=== PATIENT | female | born 1950 | race Caucasian/White ===

== ENCOUNTER 2016-06-22 15:10 | Outpatient (CLI) | payer SELFPAY ==
[~2016-06-22] VITALS: Ht 160 cm; Wt 86.2 kg
[2016-06-23] MEDS ORDERED: CETI10CA PO (12:54)
[2016-06-23] MEDS ORDERED: ESTR1TAB14 PO (12:54)
[2016-06-23] MEDS ORDERED: CALC-696 PO (12:54)
[2016-06-23] MEDS ORDERED: [UNRECOGNIZED DRUG - CODE] TP (12:54)
[2016-06-23] MEDS ORDERED: BIOT25007 PO (12:54)
[2016-06-23] MEDS ORDERED: OMEP20CA12 PO (12:54)
[2016-06-23] MEDS ORDERED: LEVO25TA5 PO (12:54)
[2016-06-23] MEDS ORDERED: MEDR2.5T6 PO (12:54)
[2016-06-23] MEDS ORDERED: BUTA1CAP39 PO (12:54)
[2016-06-23] MEDS ORDERED: FLUO15CR2 TP (12:54)
[2016-06-23] MEDS ORDERED: TRAZ-28 PO (12:54)
[2016-06-23] MEDS ORDERED: ESCI20TA PO (12:54)
[2016-06-23] MEDS ORDERED: MULT-974 PO (12:54)
[2016-06-23] MEDS ORDERED: GLUC1CAP7 PO (12:54)
[2016-06-23] MEDS ORDERED: PANT40TA2 PO (13:30)
[2016-08-11] MEDS ORDERED: METO5TAB75 PO (12:16)
== END 2016-06-22 15:24 ==
LOC: PREOP 15:10
PROVIDERS: ATTEND Surgery Pediatric Surgery
DX: Z01.818 Encounter for other preprocedural examination (principal); K21.9 Gastro-esophageal reflux disease without esophagitis

== ENCOUNTER 2016-06-23 10:54 | Day surgery (SDC) | payer OTHER ==
--- NOTE | 2016-06-23 11:05 | Conscious Sedation/ASA ---
Conscious Sedation Pre-Proced Time Reviewed: 11:05 ASA Class: 2 Airway Mallampati Classification: ([place] appropriate class) I. II. III, IV Lungs Heart ASA score ASA 1: a normal healthy patient ASA 2: a patient with a mild systemic disease (mid diabetes, controlled hypertension, obesity ASA 3: a patient with a severe systemic disease that limits activity (angina , COPD, prior Myocardial infarction) ASA 4: a patient with an incapacitating disease that is a constant threat to life (CHF, renal failure) ASA 5: a moribund patient not expected to survive 24 hrs. (ruptured aneurysm) ASA 6: a declared brain patient whose organs are being harvested. For emergent operations, add the letter E after the classification Grade 2 Sedation Plan: Analgesia, Amnesia, Plan communicated to team members, Discussed options with patient/fam, Discussed risks with patient/fam Note The patient is an appropriate candidate to undergo the planned procedure, sedation, and anesthesia. The patient immediately re-assessed prior to indication. LEE ANN BERNAL MD Jun 23, 2016 11:05 am
--- NOTE | 2016-06-23 11:06 | Progress Note-Pre Operative ---
Pre-Operative Progress Note H&P Reviewed The H&P was reviewed, patient examined and no changes noted. Date H&P Reviewed: Jun 23, 2016 Time H&P Reviewed: 11:05 Pre-Operative Diagnosis: LEE ANN COOK MD Jun 23, 2016 11:06 am
[2016-06-23 11:15] VITALS: BP 126/83
[2016-06-23] MEDS ORDERED: ONDANSETRON 4 MG/2 ML (SDV) Z0FRAN IV PRN (11:15)
[2016-06-23] MEDS ORDERED: ACETAMINOPHEN 325 MG TABLET/CAPLET (TYLENOL) PO PRN (11:15)
[2016-06-23] MEDS ORDERED: HYDROcodone/APAP 5 MG/325 MG (LORTAB) TAB PO PRN (11:15)
[2016-06-23] MEDS ORDERED: morphine INJ 10 MG/ML 1ML (SYR OR VIAL) IV PRN (11:15)
[2016-06-23] MEDS ORDERED: FLUMAZENIL (ROMAZICON) 0.1 MG/ML 5 ML VIAL INJ PRN (11:45)
[2016-06-23] MEDS ORDERED: HURRICAINE EXT TUBE (BENZOCAINE) XX PRN (11:45)
[2016-06-23] MEDS ORDERED: NS IV 500 ML 500 ML IV ONE (11:45)
[2016-06-23] MEDS ORDERED: NALOXONE 0.4 MG/ML 1 ML (NARCAN) VIAL IVP PRN (11:45)
[2016-06-23] MEDS ORDERED: LIDOCAINE JELLY 2% (XYLOCAINE) 5 ML TUBE ONE (12:10)
[2016-06-23] MEDS ORDERED: fentaNYL INJECTION 100 MCG/2 ML AMP ONE (12:10)
[2016-06-23] MEDS ORDERED: MIDAZOLAM 2 MG/2 ML (VERSED) VIAL ONE ×3 (12:10)
[2016-06-23] MEDS ORDERED: BUTA1CAP39 PO (12:54)
[2016-06-23] MEDS ORDERED: MULT-974 PO (12:54)
[2016-06-23] MEDS ORDERED: TRAZ-28 PO (12:54)
[2016-06-23] MEDS ORDERED: ESCI20TA PO (12:54)
[2016-06-23] MEDS ORDERED: OMEP20CA12 PO (12:54)
[2016-06-23] MEDS ORDERED: GLUC1CAP7 PO (12:54)
[2016-06-23] MEDS ORDERED: BIOT25007 PO (12:54)
[2016-06-23] MEDS ORDERED: MEDR2.5T6 PO (12:54)
[2016-06-23] MEDS ORDERED: ESTR1TAB14 PO (12:54)
[2016-06-23] MEDS ORDERED: CALC-696 PO (12:54)
[2016-06-23] MEDS ORDERED: FLUO15CR2 TP (12:54)
[2016-06-23] MEDS ORDERED: CETI10CA PO (12:54)
[2016-06-23] MEDS ORDERED: LEVO25TA5 PO (12:54)
[2016-06-23] MEDS ORDERED: [UNRECOGNIZED DRUG - CODE] TP (12:54)
[2016-06-23] MEDS ORDERED: ONDANSETRON 4 MG/2 ML (SDV) Z0FRAN ONE (13:01)
[2016-06-23] MEDS: MIDAZOLAM 2 MG/2 ML (VERSED) VIAL IVP PRN ×2 (13:02→13:05)
[2016-06-23] MEDS: fentaNYL INJECTION 100 MCG/2 ML AMP IVP PRN ×2 (13:06→13:12)
[2016-06-23] MEDS ORDERED: PANT40TA2 PO (13:30)
--- NOTE | 2016-06-23 13:30 | Progress Note-Post Operative ---
Post-Operative Progess Note Pre-Operative Diagnosis GERD Post-Operative Diagnosis reflux esophagitis(class B), no hiatal hernia, mutiple eroded sutures along fundus and body of stomach from previous endoscopic plication, mild gastritis. Post-Op Procedure Note Date of Procedure: Jun 23, 2016 Name of Procedure: EGD with bx. Anesthesia Type CS Estimated blood loss (mL): minimal Specimen(s) collected antrum, GE LEE ANN Ward MD Jun 23, 2016 1:30 pm
--- NOTE | 2016-06-23 13:32 | Discharge Inst-Surgical ---
D/C Lap Instructions-DOLORES New, Converted, or Re-Newed RX: Other (Must have written script) Follow Up PRN Activity as tolerated High Fiber Diet 25g or more per day Avoid Alcohol, Caffeine, Spicy [place] and Acid foods. Drink 64 fluid oz or more of fluids per day. Symptoms to Report: Fever over 101 degree F, Nausea/Vomiting If any problems/questions: Contact your physician or go to Emergency Room LEE ANN BERNAL MD Jun 23, 2016 1:32 pm
[2016-06-23] MEDS ORDERED: HURRICAINE EXT TUBE (BENZOCAINE) ONE (13:35)
[2016-06-23 13:45] VITALS: BP 128/81
[2016-06-23 14:20] VITALS: BP 132/71
[2016-06-23 14:30] VITALS: BP 132/71
--- NOTE | 2016-06-23 19:36 | PROCEDURE REPORT ---
PROCEDURE PHYSICIAN: LEE ANN BERNAL DATE OF PROCEDURE: 06/23/2016 PREOPERATIVE DIAGNOSIS: Gastroesophageal reflux disease. POSTOPERATIVE DIAGNOSES: 1. Reflux esophagitis, class B. 2. No hiatal hernia. 3. Eroded sutures from previous endoscopic gastropexy. 4. Mild gastritis. PROCEDURE: EGD with biopsy. SURGEON: Dr. Bernal. ANESTHESIA: Conscious sedation. ESTIMATED BLOOD LOSS: Minimal. FINDINGS: 1. Reflux esophagitis, class B. 2. No hiatal hernia, multiple eroded sutures from previous endoscopic gastropexy done at [facility]. 3. The pylorus and duodenum appeared normal. DISPOSITION: The patient tolerated the procedure well. Ms. Viviane Pearson is a 65-year-old female with a history of gastroesophageal reflux disease. She also does have a history of morbid obesity and underwent an endoscopic gastropexy procedure at [facility]. She reports that she has gained a significant amount weight back and during this process, she has developed reflux and regurgitation. PROCEDURE: The patient was brought to the endoscopy suite, laid in the left lateral decubitus position with the head slightly elevated. After adequate IV pain and sedative medications and conscious sedation anesthesia, the mouthpiece was applied. The endoscope was placed in the mouth, visualizing the pharynx and hypopharyngeal region. Vocal cords, epiglottis and vallecula identified and appeared to be normal. The endoscope was then gently intubated into the esophageal opening and the esophagus insufflated. The endoscope was then advanced through the first, second, and 3rd portions of the esophagus. At the level of the GE junction, a reflux esophagitis, class B identified. There were no ulcers or strictures identified in this region. A biopsy was taken with forceps with visualization of good hemostasis. The endoscope was then gently intubated into the stomach. In the stomach along the fundus and body of the stomach are multiple, what appears to be eroded sutures from a previous endoscopic gastropexy. There were no signs of infection. There were also no signs of ulceration. The endoscope was then retroflexed visualizing no hiatal hernia. The endoscope was then advanced to the antrum where a mild gastritis was identified. There were no ulcers, polyps or any neoplasms identified. Biopsy was taken with forceps with visualization of good hemostasis. The endoscope was then advanced through the pylorus and first and second portions of duodenum which appeared normal with no distal obstructions. The endoscope was then slowly withdrawn while taking a second look and suctioning of residual air with no additional findings. The patient tolerated the procedure well. We will have her continue with medical management with a high protein diet with lean protein meat sources and she should be first and foremost. She also needs to avoid caffeinated beverages, spicy, greasy and acidic foods, as well as take in smaller more frequent meals. We will also have her take a PPI acid travel accommodation inspector. Job ID: [id number] Dictated Date: 06/23/2016 13:25:19 Assistant Infant Toddler Teacher Date: 06/23/2016 19:31:22 / fabiana
== END 2016-06-23 14:30 | disposition home or self-care (01) ==
LOC: ENDO 10:54
PROVIDERS: ATTEND Surgery Pediatric Surgery
DX: K21.0 Gastro-esophageal reflux disease with esophagitis (principal); K29.70 Gastritis, unspecified, without bleeding; T85.898A Other specified complication of other internal prosthetic devices, implants and grafts, initial encounter; Z98.84 Bariatric surgery status
CPT/HCPCS: 88305

== ENCOUNTER 2016-06-30 09:45 | Outpatient (CLI) | payer OTHER ==
[~2016-06-30] VITALS: Ht 160 cm; Wt 88.0 kg
[~2016-06-30 09:45] MED LIST: BIOT25007 PO; BUTA1CAP39 PO; CALC-696 PO; CETI10CA PO; ESCI20TA PO; ESTR1TAB14 PO; FLUO15CR2 TP; GLUC1CAP7 PO; LEVO25TA5 PO; MEDR2.5T6 PO; MULT-974 PO; OMEP20CA12 PO; PANT40TA2 PO; TRAZ-28 PO; [UNRECOGNIZED DRUG - CODE] TP
--- OUTSIDE RECORDS SUMMARY | 2016-06-30 09:50 | XMS REPORT | Continuity of Care Document ---
Author Author [facility] Organization [facility] Address Unknown Phone Unavailable Support Name Relationship Address Phone LEE ANN BERNAL MD Caregiver [address] [facility] [place] [address] Insurance Providers Payer Name Policy Number Subscriber Name Relationship Self Pay Brad Pearson 19 Self / Same As Patient Advance Directives Directive Response Recorded Date/Time Advance Directives Yes 06/22/16 3:18pm Health Care Power of Quality Improvement Manager Yes 06/22/16 3:18pm Resuscitation Status Full Code 06/22/16 3:18pm Problems No problem information available. Medications No medication information available. Social History Social History Problem Response Recorded Date/Time Alcohol Use Occasionally Uses 06/22/2016 3:18pm Recreational Drug Use No 06/22/2016 3:18pm Recent Foreign Travel No 06/22/2016 3:17pm Recent Infectious Disease Exposure No 06/22/2016 3:17pm Sexually Transmitted Disease No 06/22/2016 3:18pm HIV/AIDS No 06/22/2016 3:18pm Smoking Status Never a Smoker 06/22/2016 3:18pm Recent Hopitalizations No 06/22/2016 3:18pm Sexually Transmitted Disease No 06/22/2016 3:18pm Query Response Start Date Stop Date Smoking Status Never a Smoker Hospital Discharge Instructions No hospital discharge instructions. Plan of Care Discharge Date 06/22/16 3:24pm Prescriptions See Medication Section Functional Status No functional status results. Allergies, Adverse Reactions, Alerts Allergen Type Severity Reaction Status Last Updated Sulfa (Sulfonamide Antibiotics) ([id number]) Allergy Intermediate RASH Active 06/22/16 Immunizations No immunization records. Vital Signs Acute Vital Signs Vital Response Date/Time Height (Feet) 5 feet 06/22/2016 3:16pm Height (Inches) 3.00 inches 06/22/2016 3:16pm Height (Calculated Centimeters) 160.938982 cm 06/22/2016 3:16pm Weight (Pounds) 190 pounds 06/22/2016 3:16pm Weight (Ounces) 0.0 oz 06/22/2016 3:16pm Weight (Calculated Grams) 75002.55 gm 06/22/2016 3:16pm Weight (Calculated Kilograms) 86.758314 kilograms 06/22/2016 3:16pm Calculated BMI 33.7 06/22/2016 3:16pm Results No known relevant diagnostic tests, laboratory data and/or discharge summary. Procedures No known history of procedures. Encounters Encounter Location Arrival/Admit Date Discharge/Depart Date Attending Provider Departed Clinic [facility] 06/22/16 3:10pm 06/22/16 3: 24pm LEE ANN BERNAL MD
[2016-06-30] MEDS ORDERED: FEXO180T84 PO (10:03)
[2016-06-30] MEDS ORDERED: ESTR0.3T PO (10:03)
[2016-06-30 10:07] VITALS: BP 137/86
[2016-06-30 10:34] LABS: BASOPHILS % (AUTO) 0 % (0-10); EOSINOPHILS # (AUTO) 0.2 10^3/uL (0.0-0.3); EOSINOPHILS % (AUTO) 3 % (0-10); LYMPHOCYTES # (AUTO) 1.5 X 10^3 (1.0-4.0); LYMPHOCYTES % (AUTO) 25 % (12-44); MEAN CORPUSCULAR HEMOGLOBIN 31 PG (25-34); MEAN CORPUSCULAR HGB CONC 34 G/DL (32-36); MEAN CORPUSCULAR VOLUME 92 FL (80-99); MEAN PLATELET VOLUME 9.3 FL (7.4-10.4); MONOCYTES # (AUTO) 0.8 X 10^3 (0.0-1.0); MONOCYTES % (AUTO) 14 % (0-12); NEUTROPHILS # (AUTO) 3.5 X 10^3 (1.8-7.8); NEUTROPHILS % (AUTO) 58 % (42-75); PLATELET COUNT 240 10^3/uL (130-400); RED BLOOD COUNT 4.58 10^6/uL (4.35-5.85); WHITE BLOOD COUNT 6.1 10^3/uL (4.3-11.0)
== END 2016-06-30 10:46 | disposition home or self-care (01) ==
LOC: PREOP 09:45
PROVIDERS: ATTEND Surgery Pediatric Surgery
DX: Z01.812 Encounter for preprocedural laboratory examination (principal); Z11.2 Encounter for screening for other bacterial diseases; E66.01 Morbid (severe) obesity due to excess calories
CPT/HCPCS: 36415; 85025; 87081

== ENCOUNTER 2016-07-06 10:59 | Day surgery (SDC) | payer OTHER ==
[~2016-07-06] VITALS: Ht 160 cm; Wt 88.0 kg
[~2016-07-06 10:59] MED LIST changes: +ESTR0.3T PO; +FEXO180T84 PO
[2016-07-06] MEDS ORDERED: LACTATED RINGERS 1,000 ML IV PRN ×2 (11:12→13:34)
[2016-07-06] MEDS ORDERED: SCOPOLAMINE 1.5 MG (TRANSDERM-SCOP) PATCH TOP ONE (11:15)
[2016-07-06] MEDS ORDERED: FAMOTIDINE 20MG/2ML IV (PEPCID) IV ONE (11:15)
[2016-07-06] MEDS ORDERED: ONDANSETRON 4 MG/2 ML (SDV) Z0FRAN IV ONE (11:15)
[2016-07-06] MEDS ORDERED: NS (IVPB) 50 ML ONE (11:21)
[2016-07-06] MEDS ORDERED: ceFAZolin 1,000 MG (ANCEF) VIAL ONE (11:21)
[2016-07-06] MEDS ORDERED: ceFAZolin 1 GM/NS 50 ML IVPB IV ONE ×2 (11:30)
--- NOTE | 2016-07-06 11:47 | Progress Note-Pre Operative ---
Pre-Operative Progress Note H&P Reviewed The H&P was reviewed, patient examined and no changes noted. Date H&P Reviewed: Jul 06, 2016 Time H&P Reviewed: 11:45 Pre-Operative Diagnosis: morbid obesity, HTN LEE ANN BERNAL MD Jul 06, 2016 11:47 am
[2016-07-06] MEDS ORDERED: BUP/EPI 0.5% 1:200,000 (SENSORCAINE) 30 ML VIAL ONE (13:22)
[2016-07-06] MEDS ORDERED: MIDAZOLAM 2 MG/2 ML (VERSED) VIAL ONE ×2 (13:26→15:00)
[2016-07-06] MEDS ORDERED: MIDAZOLAM 2 MG/2 ML (VERSED) VIAL IV ONE (13:45)
[2016-07-06] MEDS ORDERED: fentaNYL INJECTION 250 MCG/5 ML AMP ONE (14:58)
[2016-07-06] MEDS ORDERED: ROCURONIUM 50 MG/5 ML (ZEMURON) VIAL IV ONE (14:58)
[2016-07-06] MEDS ORDERED: proPOfol 200 MG/20 ML (DIPRIVAN) VIAL IV ONE (14:58)
[2016-07-06] MEDS ORDERED: morphine INJ 10 MG/ML 1ML (SYR OR VIAL) ONE (15:42)
[2016-07-06] MEDS ORDERED: HYDROmorphone (DILAUDID) 2 MG/ML VIAL ONE (15:42)
[2016-07-06] MEDS ORDERED: GLYCOPYRROLATE 0.2 MG/ML (ROBINUL) 2 ML VIAL ONE ×3 (17:02→17:22)
[2016-07-06] MEDS ORDERED: NEOSTIGMINE (BLOXIVERZ ) 1 MG/1ML 10 ML VIAL ONE (17:02)
[2016-07-06] MEDS ORDERED: LACTATED RINGERS 2,000 ML IV ONE (17:02)
[2016-07-06] MEDS ORDERED: KETOROLAC 30 MG/ML VIAL ONE (17:02)
[2016-07-06] MEDS ORDERED: DEXAMETHASONE PF 10 MG/ML (DECADRON) VIAL ONE (17:04)
[2016-07-06] MEDS ORDERED: DESFLURANE (SUPRANE) 15 ML INHAL SOLN ONE (17:07)
--- NOTE | 2016-07-06 17:09 | Progress Note-Post Operative ---
Post-Operative Progess Note Feather Renovator amando murphy IMPORT EXPORT MANAGER Pre-Operative Diagnosis morbid obesity, HTN Post-Operative Diagnosis same Post-Op Procedure Note Date of Procedure: Jul 06, 2016 Name of Procedure: laparoscopic gastric sleeve resection Anesthesia Type GET Estimated blood loss (mL): minimal Specimen(s) collected stomach LEE ANN BERNAL MD Jul 06, 2016 5:09 pm
[2016-07-06] MEDS ORDERED: fentaNYL PCA 300 MCG/30 ML VIAL IV PRN (17:15)
[2016-07-06] MEDS ORDERED: RT-ALBUTEROL SULF 2.5 MG/3 ML PRE-MIX VIAL INH SCH ×2 (17:15→18:00)
[2016-07-06] MEDS ORDERED: diphenhydrAMINE 50 MG/ML INJ (BENADRYL) IVP PRN (17:15)
[2016-07-06] MEDS ORDERED: PROMETHAZINE INJ 25 MG/ML (PHENERGAN) AMP IV PRN (17:15)
[2016-07-06] MEDS ORDERED: oxyCODONE 20 MG/1 ML ORAL CONC (RoxiCODONE) CHARGE PER 1 ML PO PRN (17:15)
[2016-07-06] MEDS ORDERED: HYDROmorphone (DILAUDID) 2 MG/ML VIAL IV PRN (17:15)
[2016-07-06] MEDS ORDERED: morphine INJ 10 MG/ML 1ML (SYR OR VIAL) IV PRN (17:15)
[2016-07-06] MEDS ORDERED: ONDANSETRON 4 MG/2 ML (SDV) Z0FRAN IV PRN (17:15)
--- NOTE | 2016-07-06 17:21 | Discharge Inst-Surgical ---
D/C Lap Instructions-DOLORES Follow Up Appt in 2 weeks Activity as tolerated No driving for 24 hours No [address] while on pain medications Incentive Spirometry use every 2 hours while awake Phase 1 clear liquid diet 2 weeks. Symptoms to Report: Fever over 101 degree F, Nausea/Vomiting Infection Signs and Symptoms to report: Increased redness, Foul odor of wound, Increased drainage Bathing instructions: May shower Operative Area Clean/Dry; Keep incision clean/dry If any problems/questions: Contact your physician or go to Emergency Room LEE ANN BERNAL MD Jul 06, 2016 5:21 pm
[2016-07-06 18:30] VITALS: BP 124/77
[2016-07-06] MEDS: metroNIDAZOLE 500MG/100ML IVPB 100 ML IV SCH (19:01)
[2016-07-06] MEDS: METOCLOPRAMIDE INJ 10 MG/2 ML (REGLAN) IVP SCH (19:01)
[2016-07-06] MEDS: LACTATED RINGERS 1,000 ML IV SCH (19:01)
[2016-07-06 20:00] VITALS: BP 124/77
[2016-07-06] MEDS: meTOprolol 5 MG/5 ML (LOPRESSOR) VIAL IVP SCH (20:32)
[2016-07-06] MEDS: ENOXAPARIN 30 MG/0.3 ML (LOVENOX) SYR SC SCH (20:32)
[2016-07-06] MEDS: ONDANSETRON 4 MG/2 ML (SDV) Z0FRAN IVP SCH (20:32)
[2016-07-06] MEDS ORDERED: RT-ALBUTEROL SULF 2.5 MG/3 ML PRE-MIX VIAL ONE (22:12)
[2016-07-06] MEDS: ceFAZolin 2 GM/50 ML NS 50 ML IV SCH (23:32)
[2016-07-07] VITALS: BP 120/79
[2016-07-07 00:10] VITALS: BP 120/79
[2016-07-07] MEDS: METOCLOPRAMIDE INJ 10 MG/2 ML (REGLAN) IVP SCH ×3 (00:30→12:01)
[2016-07-07] MEDS: ONDANSETRON 4 MG/2 ML (SDV) Z0FRAN IVP SCH ×3 (00:30→12:00)
[2016-07-07] MEDS: meTOprolol 5 MG/5 ML (LOPRESSOR) VIAL IVP SCH ×4 (00:30→12:00)
[2016-07-07] MEDS: metroNIDAZOLE 500MG/100ML IVPB 100 ML IV SCH ×2 (02:01→08:39)
[2016-07-07 04:10] VITALS: BP 117/76
[2016-07-07] MEDS: LACTATED RINGERS 1,000 ML IV SCH ×3 (04:23→12:01)
[2016-07-07 04:27] LABS: MEAN PLATELET VOLUME 9.4 FL (7.4-10.4); RED BLOOD COUNT 4.33 10^6/uL (4.35-5.85); RED CELL DISTRIBUTION WIDTH 12.8 % (10.0-14.5); WHITE BLOOD COUNT 11.7 10^3/uL (4.3-11.0)
[2016-07-07] MEDS: ceFAZolin 2 GM/50 ML NS 50 ML IV SCH ×2 (06:10→13:10)
[2016-07-07 08:35] VITALS: BP 111/64
[2016-07-07] MEDS: ENOXAPARIN 30 MG/0.3 ML (LOVENOX) SYR SC SCH (08:39)
[2016-07-07] MEDS ORDERED: PANTOPRAZOLE 40 MG/10 ML (PROTONIX) VIAL IV SCH (09:00)
--- NOTE | 2016-07-07 10:15 | OPERATIVE REPORT ---
PROCEDURE PHYSICIAN: LEE ANN NORWOOD DATE OF PROCEDURE: 07/06/2016 ATTENDING PRIMARY CARE PHYSICIAN: Dr. Rose Mary Esparza PREOPERATIVE DIAGNOSIS: 1. Morbid obesity. 2. GERD. POSTOPERATIVE DIAGNOSES: 1. Morbid obesity. 2. GERD. PROCEDURE: Laparoscopic gastric sleeve resection. SURGEON: Dr. Norwood. RESIDENT CARE MANAGER: Jose Manuel Torres APRN. ANESTHESIA: General endotracheal. ESTIMATED BLOOD LOSS: Minimal. FINDINGS: Extensive adhesion tissue from a previous endoscopic stapling procedure in 2013. DISPOSITION: The patient tolerated the procedure well. Ms. Viviane Pearson is a 65-year-old female with a history of morbid obesity who is in our surgical weight loss program for the laparoscopic gastric sleeve resection. She gained the majority of her adult weight 15th years ago. Her parents became ill and she took care of both of them. During this process, she states the stress as well as her work of taking care of them she did eat more and did gain a substantial amount weight. She has tried a number of diet and exercise attempts and no success. She has tried diet programs including Weight Watchers, portion control, Atkins, low carb, high protein diets with no success. She has also tried exercise regimens mostly walking, treadmill, as well as jogging. She has tried medications including Fen/Phen and phentermine, more recently. She is able to lose approximately 15 pounds however had to discontinue the medication due to side effects. She tried belviq with no success as well. Her medical comorbidities include gastroesophageal reflux disease, degenerative joint disease of the knees, anxiety and depression. PROCEDURE: The patient was brought to the operating room, laid supine on the table. After adequate IV pain and sedative medications, and general endotracheal intubation, the abdomen was prepped and draped in the standard surgical fashion. 0.5% Marcaine with epinephrine was then used to anesthetize the overlying skin in the left upper abdominal quadrant. A small transverse incision made using a 15 blade. An 0 silk suture was applied to the medial aspect of the incision for retraction. A Veress needle inserted with a low opening pressure of 0 mmHg. The abdomen was then insufflated to 15 mmHg pressure. The Veress needle removed and a 5 mm Xcel trocar placed followed by a 5 mm, 45 degrees angle laparoscope, visualizing the peritoneal cavity. A four-quadrant abdominal exploration was performed. There were extensive gastric adhesions towards the anterior abdominal wall and lateral abdomen due to a previous endoscopic gastric stapling procedure done at [facility]. Under direct visualization we then proceeded to place a mid abdominal, left of midline 10 mm port after the skin and peritoneum were anesthetized using 0.5% Marcaine with epinephrine and a transverse incision made using a 15 blade. The mid abdominal, right of midline 15 mm port was placed, followed by a 5 mm right upper abdominal quadrant port. The patient was placed steep reverse Trendelenburg position. We then proceeded with systematic dissection of the adhesive bands of the stomach using a Harmonic scalpel with visualization of good hemostasis. Once this was established we proceeded to measured approximately 6 cm from the pylorus along the greater curvature and marked this area with a marking pen. The hepatocolic ligament next to the stomach was then opened using a Sonicision. We then proceeded further until the lesser sac was identified and opened. We then proceeded inferior until we were approximately 2 cm below our marking using the Sonicision with visualization of good hemostasis. We then proceeded with superior dissection taking down the short gastric vessels, as well as the angle of Hiss connective tissue fibers of the stomach behind this. No hiatal hernia was identified. Good hemostasis was observed. The GastriSail lighted bougie was then placed under direct visualization until the tip was at the pylorus. We used the GastriSail as our guide. A OSMAN 45 mm polyglycolic acid coated stapler was then used to staple and transect the stomach 2 cm below our marking. We then proceeded with two 60 mm black loads followed by two 60 mm purple loads with visualization of good hemostasis. The staple line corners were then clipped with 5 mm clips. The pylorus was then occluded and saline irrigated toward the staple line and approximately 60 mL of air were infused with no leak identified. The saline was then suctioned out. Tisseel fibrin glue was then placed on suture line and the omentum placed over the staple line. The stomach was then removed through the 10 and 15 mm port site. The fascia and peritoneum to the 10 and 15 mm port site was then closed using Miguel-Matt device and 0 Vicryl suture. The abdomen was desufflated and the liver retractor removed as well. All skin incisions were closed using 4-0 Monocryl running subcuticular sutures. Wounds were then cleaned and covered Dermabond. The patient tolerated procedure well. We will start admit her for observation. We will start IV and oral pain medication as well as a clear liquid diet. Once she is tolerating clears, has good pain control with oral pain medications and ambulating well, we will discharge her home. Job ID: [id number] Dictated Date: 07/06/2016 17:28:53 Fashion Merchandiser Date: 07/07/2016 09:51:27 / dorene UMANZOR
[2016-07-07] MEDS ORDERED: OXYC500S3 PO (10:29)
--- NOTE | 2016-07-07 11:07 | Progress Note (SOAP) ---
Subjective Subjective/Events-last exam doing well. pain controlled. no SOB. started phase 1 clear liquid diet with no nausea/vomiting. Objective Exam Vital Signs Date Time Temp Pulse Resp B/P (MAP) Pulse Ox O2 Delivery O2 Flow Rate FiO2 07/07/16 08:35 97.6 66 20 111/64 93 Room Air 07/07/16 07:15 100 07/07/16 06:00 20 07/07/16 04:10 99.0 95 20 117/76 94 Room Air 07/07/16 01:11 63 07/07/16 00:10 98.4 93 20 120/79 98 Room Air 07/07/16 00:00 98.0 93 20 120/79 98 Room Air 07/06/16 20:15 Room Air 07/06/16 20:06 92 07/06/16 20:00 97.4 69 18 124/77 95 Nasal Cannula 3.00 07/06/16 19:08 18 07/06/16 18:30 96.0 66 20 124/77 95 Nasal Cannula 3.00 07/06/16 17:50 97.6 I & O 07/07/16 07:00 Intake Total 200 ml Output Total 350 ml Balance -150 ml Capillary Refill : General Appearance: No Apparent Distress HEENT: PERRL/EOMI Neck: Full Range of Motion Respiratory: Chest Non Tender, Lungs Clear, Normal Breath Sounds Cardiovascular: Regular Rate, Rhythm Gastrointestinal: soft, other (wounds clean/dry) Extremity: Normal Capillary Refill Neurologic/Psychiatric: Alert, Oriented x3 Skin: Normal Color Lymphatic: No Adenopathy Results Lab Laboratory Tests 07/07/16 04:00: White Blood Count 11.7H, Red Blood Count 4.33L, Hemoglobin 13.2, Hematocrit 39, Mean Corpuscular Volume 91, Mean Corpuscular Hemoglobin 31, Mean Corpuscular Hemoglobin Concent 34, Red Cell Distribution Width 12.8, Platelet Count 213, Mean Platelet Volume 9.4 Assessment/Plan Assessment/Plan Assess & Plan/Chief Complaint s/p laparoscopic gastric sleeve resection. ambulate. increase PO clear liquid intake. home when criteria met. Clinical Quality Measures DVT/VTE Risk/Contraindication: Risk Factor Score Per Nursin RFS Level Per Nursing on Admit: 3=High LEE ANN BERNAL MD Jul 07, 2016 11:07 am
[2016-07-07 12:00] VITALS: BP 124/66
[2016-07-07 12:07] VITALS: BP 134/75
[2016-07-07] MEDS ORDERED: OXYC20OR15 PO (13:36)
--- NOTE | 2016-07-07 14:32 | Anesthesia-General Post-Op ---
General Patient Condition Mental Status/LOC: Same as Preop Cardiovascular: Satisfactory Nausea/Vomiting: Absent Respiratory: Satisfactory Pain: Controlled Complications: Absent Post Op Complications Complications None Follow Up Care/Instructions Patient Instructions None needed. Anesthesia/Patient Condition Patient Condition Patient is doing well, no complaints, stable vital signs, no apparent adverse anesthesia problems. No complications reported per nursing. D/C home per [facility] Criteria: Yes OLYA RAMSEY DO Jul 07, 2016 14:32
[2016-07-07] MEDS ORDERED: METOCLOPRAMIDE INJ 10 MG/2 ML (REGLAN) IVP PRN (17:15)
[2016-07-07] MEDS ORDERED: ONDANSETRON 4 MG/2 ML (SDV) Z0FRAN IVP PRN (17:15)
== END 2016-07-07 14:09 | disposition home or self-care (01) ==
LOC: DELPENDDIS → SDC 10:59 → 4TH 18:02 → SDC 07-07 14:09
PROVIDERS: ATTEND Surgery Pediatric Surgery
DX: E66.01 Morbid (severe) obesity due to excess calories (principal); Z68.34 Body mass index [BMI] 34.0-34.9, adult; K21.9 Gastro-esophageal reflux disease without esophagitis; M17.0 Bilateral primary osteoarthritis of knee; F41.9 Anxiety disorder, unspecified; F32.9 Major depressive disorder, single episode, unspecified
CPT/HCPCS: 36415; 85027; 88307; 88342; 94664

== ENCOUNTER → 2016-07-24 | Outpatient (CLI) | payer OTHER ==
[~2016-07-24] VITALS: Ht 160 cm; Wt 74.9 kg
[~2016-07-24] MED LIST changes: +CATHETER FLUSH 10 ML SYR IV PRN; +METO5TAB75 PO; +METOCLOPRAMIDE INJ 10 MG/2 ML (REGLAN) IV PRN; +OXYC20OR15 PO; +OXYC500S3 PO; +PANTOPRAZOLE 40 MG/10 ML (PROTONIX) VIAL IV ONE
[2016-07-24 11:15] VITALS: BP 134/79
[2016-07-24 11:23] LABS: MEAN PLATELET VOLUME 8.9 FL (7.4-10.4); RED BLOOD COUNT 4.77 10^6/uL (4.35-5.85); RED CELL DISTRIBUTION WIDTH 12.8 % (10.0-14.5); WHITE BLOOD COUNT 8.1 10^3/uL (4.3-11.0)
[2016-07-24] MEDS: NS IV 1000 ML 1,000 ML IV SCH ×2 (11:24→13:24)
[2016-07-24] MEDS: ONDANSETRON 4 MG/2 ML (SDV) Z0FRAN IV PRN ×2 (11:26→15:13)
[2016-07-24 11:42] LABS: ALBUMIN 3.7 G/DL (3.2-4.5); BILIRUBIN,TOTAL 0.4 MG/DL (0.1-1.0); CALCIUM 9.7 MG/DL (8.5-10.1); CREATININE SERUM 0.95 MG/DL (0.60-1.30); POTASSIUM 3.9 MMOL/L (3.6-5.0); TOTAL PROTEIN 7.2 G/DL (6.4-8.2)
[2016-07-24 15:33] VITALS: BP 134/79
== END ==
LOC: SDC 10:58
PROVIDERS: ATTEND Nurse Practitioner Family
DX: R11.2 Nausea with vomiting, unspecified (principal); E86.0 Dehydration
CPT/HCPCS: 36415; 80053; 85027; 96360; 96361; 96374; 96375

== ENCOUNTER 2016-08-10 10:59 | Outpatient (CLI) | payer OTHER ==
[~2016-08-10] VITALS: Ht 160 cm; Wt 74.9 kg
[~2016-08-10 10:59] MED LIST changes: -CATHETER FLUSH 10 ML SYR IV PRN; -METO5TAB75 PO; -METOCLOPRAMIDE INJ 10 MG/2 ML (REGLAN) IV PRN; -PANTOPRAZOLE 40 MG/10 ML (PROTONIX) VIAL IV ONE
[2016-08-11] MEDS ORDERED: METO5TAB75 PO (12:16)
== END 2016-08-10 11:09 ==
LOC: PREOP 10:59
PROVIDERS: ATTEND Surgery Pediatric Surgery
DX: Z01.818 Encounter for other preprocedural examination (principal); K21.9 Gastro-esophageal reflux disease without esophagitis

== ENCOUNTER 2016-08-11 10:00 | Day surgery (SDC) | payer OTHER ==
[~2016-08-11] VITALS: Ht 160 cm; Wt 74.9 kg
[2016-08-11] MEDS ORDERED: NS IV 500 ML 500 ML ONE ×2 (10:12→11:43)
[2016-08-11 10:15] VITALS: BP 127/91
[2016-08-11] MEDS ORDERED: NALOXONE 0.4 MG/ML 1 ML (NARCAN) VIAL IVP PRN (10:15)
[2016-08-11] MEDS ORDERED: NS IV 500 ML 500 ML IV PRN (10:15)
[2016-08-11] MEDS ORDERED: LIDOCAINE JELLY 2% (XYLOCAINE) 5 ML TUBE MM PRN (10:15)
[2016-08-11] MEDS ORDERED: HURRICAINE EXT TUBE (BENZOCAINE) XX PRN (10:15)
[2016-08-11] MEDS ORDERED: FLUMAZENIL (ROMAZICON) 0.1 MG/ML 5 ML VIAL INJ PRN (10:15)
--- NOTE | 2016-08-11 10:16 | Conscious Sedation/ASA ---
Conscious Sedation Pre-Proced Time Reviewed: 10:15 ASA Class: 2 Airway Mallampati Classification: ([place] appropriate class) I. II. III, IV Lungs Heart ASA score ASA 1: a normal healthy patient ASA 2: a patient with a mild systemic disease (mid diabetes, controlled hypertension, obesity ASA 3: a patient with a severe systemic disease that limits activity (angina , COPD, prior Myocardial infarction) ASA 4: a patient with an incapacitating disease that is a constant threat to life (CHF, renal failure) ASA 5: a moribund patient not expected to survive 24 hrs. (ruptured aneurysm) ASA 6: a declared brain patient whose organs are being harvested. For emergent operations, add the letter E after the classification Grade 2 Sedation Plan: Analgesia, Amnesia, Plan communicated to team members, Discussed options with patient/fam, Discussed risks with patient/fam Note The patient is an appropriate candidate to undergo the planned procedure, sedation, and anesthesia. The patient immediately re-assessed prior to indication. LEE ANN BERNAL MD Aug 11, 2016 10:16 am
--- NOTE | 2016-08-11 10:16 | Progress Note-Pre Operative ---
Pre-Operative Progress Note H&P Reviewed The H&P was reviewed, patient examined and no changes noted. Date H&P Reviewed: Aug 11, 2016 Time H&P Reviewed: 10:15 Pre-Operative Diagnosis: persistent nausea/vomiting LEE ANN BERNAL MD Aug 11, 2016 10:16 am
[2016-08-11] MEDS ORDERED: morphine INJ 10 MG/ML 1ML (SYR OR VIAL) IV PRN (10:30)
[2016-08-11] MEDS ORDERED: HYDROcodone/APAP 5 MG/325 MG (LORTAB) TAB PO PRN (10:30)
[2016-08-11] MEDS ORDERED: ACETAMINOPHEN 325 MG TABLET/CAPLET (TYLENOL) PO PRN (10:30)
[2016-08-11] MEDS ORDERED: ONDANSETRON 4 MG/2 ML (SDV) Z0FRAN IV PRN (10:30)
[2016-08-11] MEDS ORDERED: LIDOCAINE JELLY 2% (XYLOCAINE) 5 ML TUBE ONE (11:19)
[2016-08-11] MEDS ORDERED: fentaNYL INJECTION 100 MCG/2 ML AMP ONE (11:20)
[2016-08-11] MEDS ORDERED: MIDAZOLAM 2 MG/2 ML (VERSED) VIAL ONE ×3 (11:20)
[2016-08-11] MEDS: MIDAZOLAM 2 MG/2 ML (VERSED) VIAL IVP PRN ×3 (11:20→11:26)
[2016-08-11] MEDS ORDERED: HURRICAINE EXT TUBE (BENZOCAINE) ONE (11:20)
[2016-08-11] MEDS: fentaNYL INJECTION 100 MCG/2 ML AMP IVP PRN ×2 (11:21→11:24)
[2016-08-11 12:00] VITALS: BP_SYST 125; BP_SYST 134; BP_DIAS 81; BP_DIAS 88
--- NOTE | 2016-08-11 12:15 | Progress Note-Post Operative ---
Post-Operative Progess Note Surgeon (s)/Livestock Yard Supervisor (s) Surgeon LEE ANN BERNAL MD Livestock Yard Supervisor: none Pre-Operative Diagnosis persistent nausea/vomiting Post-Operative Diagnosis reflux esophagitis(class B), mid-gastric sticture with retained suture from previous endoscopic gastropexy. Post-Op Procedure Note Date of Procedure: Aug 11, 2016 Name of Procedure Performed: EGD with dilatation. Description of the Procedure: EGD with dilatation. Findings of the Procedure . Anesthesia Type CS Estimated blood loss (mL): minimal Specimen(s) collected/removed GE jxn, antrum LEE ANN BERNAL MD Aug 11, 2016 12:15 pm
[2016-08-11] MEDS ORDERED: METO5TAB75 PO (12:16)
--- NOTE | 2016-08-11 12:17 | Discharge Inst-Surgical ---
D/C Lap Instructions-KIDO New, Converted, or Re-Newed RX: RX on Chart Follow Up Appt in 6 weeks Activity as tolerated Avoid Alcohol, Caffeine, Spicy [place] and Acid foods. Drink 64 fluid oz or more of fluids per day. Symptoms to Report: Fever over 101 degree F, Nausea/Vomiting If any problems/questions: Contact your physician or go to Emergency Room LEE ANN BERNAL MD Aug 11, 2016 12:17 pm
[2016-08-11 12:30] VITALS: BP 124/83
[2016-08-11 12:33] VITALS: BP 124/83
--- NOTE | 2016-08-12 02:31 | OPERATIVE REPORT ---
DATE OF SERVICE: 08/11/2016 PREOPERATIVE DIAGNOSES: Dysphagia, regurgitation. 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 PROCEDURE: EGD with dilatation. SURGEON: Lee Ann Bernal MD ANESTHESIA: Conscious sedation. ESTIMATED BLOOD LOSS: Minimal. FINDINGS: Reflux esophagitis class B. There was a mid gastric stricture with some old previous suture. There was some irritation and gastritis; however, there were no formal ulcers. We were able to get past the area of stricture with the endoscope into the antrum and the pylorus and duodenum, which appeared normal. We dilated the stricture to 14 mm in diameter. DISPOSITION: The patient tolerated the procedure well. INDICATIONS: The patient is a 65-year-old female with history of morbid obesity. She underwent an endoscopic gastropexy procedure at [facility] in 2013. This was for weight loss; however, the procedure did not work. She underwent an endoscopy by us before her recent surgery and it did show some retained sutures from her previous procedure. She then underwent a laparoscopic gastric sleeve resection 6 weeks ago. She reports that she has done well with weight loss, however, does have issues with epigastric pressure sensation as well as regurgitation. She states that she is only able to take in approximately 4-8 fluid ounces of water daily and only able to take in small amounts of food. She does not report any nausea. DESCRIPTION OF PROCEDURE: The patient was brought to the endoscopy suite, laid in the left lateral decubitus position. After adequate IV pain and sedative medications and conscious sedation anesthesia, the mouthpiece was applied. The endoscope was then placed in the mouth visualizing the pharynx and hypopharyngeal region. Vocal cords, epiglottis and vallecula identified and appeared to be normal. The endoscope was then gently intubated in the esophageal opening and the esophagus was insufflated. The endoscope was then advanced to the first, second, and third portions of the esophagus. At the level of the GE junction, reflux esophagitis class B identified. No strictures in this region. The endoscope was then easily advanced into the stomach and there was retained food substance within the gastric pouch. This was suctioned completely and a mid gastric stricture was identified. The previous foreign body sutures that were placed from her previous procedure were also identified. There were no formal ulcers. The endoscope was able to pass through this region into the remnant of the antrum as well as through the pylorus into the first and second portions of the duodenum, which appeared normal. We then decided to proceed with dilatation of the gastric stricture. A CRE fixed guidewire balloon was then placed under direct visualization and insufflated to approximately 7 atmospheres of pressure or 14 mm in luminal diameter with some [id number] resistance and left this in place for approximately 60 seconds. The balloon was then decompressed and removed. The endoscope was placed back through this region with no mucosal tears identified. The residual air was suctioned out and the endoscope slowly withdrawn with no additional findings. The patient tolerated the procedure well. We will proceed with a gradual dilatation and have her continue with clear liquid diet with protein supplementation in liquid form for now. We will have her come back in approximately 6 weeks to proceed with another dilatation procedure. If this does not resolve with conservative measures, we will then consult a heel dipper who does do endoscopic temporary stenting to allow the area of stricture to open and stay open. Job ID: [id number] DocumentID: [id number] Dictated Date: 08/11/2016 12:07:18 Plush Brusher Date: 08/12/2016 02:07:10 Dictated By: LEE ANN BERNAL MD MTDD
== END 2016-08-11 12:35 | disposition home or self-care (01) ==
LOC: ENDO 10:00
PROVIDERS: ATTEND Surgery Pediatric Surgery
DX: K21.0 Gastro-esophageal reflux disease with esophagitis (principal); K31.89 Other diseases of stomach and duodenum; T85.898A Other specified complication of other internal prosthetic devices, implants and grafts, initial encounter; Z98.84 Bariatric surgery status